=== PATIENT | male | born 1990 | race Caucasian/White ===

== ENCOUNTER 2021-10-24 20:44 | Emergency (ER) | payer OTHER, SELFPAY ==
[2021-10-24 20:50] VITALS: BP 121/84; PULSE 112; RESP 18; TEMP 36.8; O2SAT 97; BMI 22.3
[2021-10-24 21:00] VITALS: BP 121/84; PULSE 112; RESP 18; TEMP 36.8; O2SAT 97; BMI 22.3
--- NOTE | 2021-10-24 21:20 | HMH.EDUTC ---
[facility] [place] Disposition Clinical Impression: Low back strain Qualifiers: Encounter type: initial encounter Qualified Code(s): S39.012A - Strain of muscle, fascia and tendon of lower back, initial encounter Disposition: Home, Self-Care Condition on Discharge: Good Instructions: DI for Low Back Pain, Ibuprofen, Methocarbamol Additional Instructions: *Ibuprofen veronique 6 hours with meal as needed for pain/inflammation *Not additional anti-inflammatory like motrin, aleve, advil with the above amount of ibuprofen. You can still take Tylenol every 4 hours as needed if you need something else for pain *Ice 20 minutes every 2 hours for the first 48 hours after the initial injury followed by moist heat every 20 minutes 3-4 times a day to affected area *Muscle relaxer every 12 hours as needed for muscle spasms but remember, it WILL cause drowsiness You cannot take it and drive, operate machinery or care for small children. *Keep this area active, no movement leads to more stiffness, However take it easy and avoid heavy lifting pushing or pulling *Follow up with you family doctor if no improvement for further treatment Return if needed Straight to ER if any loss of control of bowel or bladder or life threatening symptoms Prescriptions: Ibuprofen [Ibuprofen 400mg Tablet] 400 mg PO Q6HP PRN #20 tab PRN Reason: Moderate Pain Transmission Status: Received by [facility] methylPREDNISolone [Medrol 4mg tab] 4 mg PO DIRECTED #21 tab Transmission Status: Received by [facility] methocarbamoL [Methocarbamol 500mg Tablet] 500 mg PO BID PRN #15 tab PRN Reason: Muscle Spasm Transmission Status: Received by [facility] Referrals: Provider,Referral, [Primary Care Provider] - As needed Medical Decision Making - [place] Inquiry Pt receiving controlled substance: No Kodi was queried for this patient: No Vital Signs: 10/24/21 20:50 10/24/21 21:00 10/24/21 21:35 Temperature 98.3 F 98.3 F 98.3 F Temperature Source Oral Oral Pulse Rate 112 H Pulse Rate [Left] 112 H 112 H Respiratory Rate 18 18 18 Blood Pressure 121/84 Blood Pressure [Right Arm] 121/84 121/84 Blood Pressure Mean [Right Arm] 96 96 Blood Pressure Source [Right Arm] Automatic Cuff Blood Pressure Position [Right Arm] Sitting 02 Sat by Pulse Oximetry 97 97 Oxygen Delivery Method Room Air Room Air Orders (Tests/Meds): ED MEDICATIONS Discontinued Medications Generic Name Dose Route Start Last Admin Trade Name Hector PRN Reason Stop Dose Admin Ibuprofen 400 mg 10/24/21 21:22 10/24/21 21:34 Ibuprofen 400 Mg Tablet PO 10/24/21 21:23 400 mg ONCE ONE Administration Prednisone 10 mg 10/24/21 21:29 10/24/21 21:35 Prednisone 5mg Tab PO 10/24/21 21:30 Not Given ONCE ONE Prednisone 20 mg 10/24/21 21:34 10/24/21 21:35 Prednisone 20mg Tab PO 10/24/21 21:35 10 mg ONCE ONE Administration Medical Decision Narrative: Recommended injection and patient declined states that he does not like shots and will try pills [facility] [place] HPI - General Stated complaint: back pain Time Seen by Provider: 10/24/21 21:20 Mode of Arrival: Ambulatory Source of Information: Patient Limitations: No Limitations Description of Symptoms (Recalled from Triage Doc. by RN): PATIENT C/O LOWER BACK PAIN SINCE LAST NIGHT HEENT Symptoms (Recalled from RN notes): No Resp Symptoms (Recalled from RN notes): No Skin Symptoms (Recalled from RN notes): No MS Symptoms (Recalled from RN notes): Yes Functional Status (Recalled from RN notes): WNL - History of Present Illness Provider Complaint: Patient state that he sleeps on his belly and as he rolled over last night he thinks he twisted his back States that he has been having pain in his lower back ever since state that it hurts worse with certain ways he moves or when he bends over or stands up Denies radiation of pain and denies loss of control of bowel or bladder Denies burning or madelyn
[2021-10-24 21:35] VITALS: BP 121/84; PULSE 112; RESP 18; TEMP 36.8; O2SAT 97
== END 2021-10-24 21:43 | disposition home or self-care (01) ==
PROVIDERS: Emergency Provider Nurse Practitioner
DX: S39.012A Strain of muscle, fascia and tendon of lower back, initial encounter (principal); X50.1XXA Overexertion from prolonged static or awkward postures, initial encounter; Y92.019 Unspecified place in single-family (private) house as the place of occurrence of the external cause
CPT/HCPCS: 99202; G0463